=== PATIENT | female | born 1950 | race Caucasian/White ===

== ENCOUNTER → 2016-05-04 | Outpatient (CLI) | payer OTHER | LOC: MMPC 11:11 | DX: N95.2 Postmenopausal atrophic vaginitis (principal); F32.9 Major depressive disorder, single episode, unspecified; Z91.09 Other allergy status, other than to drugs and biological substances; E78.5 Hyperlipidemia, unspecified; R14.0 Abdominal distension (gaseous) | CPT/HCPCS: 99213; G0463 ==

== ENCOUNTER → 2016-05-11 | Outpatient (CLI) | payer OTHER | LOC: MMPC 11:11 | PROVIDERS: ATTEND Surgery | DX: Z12.11 Encounter for screening for malignant neoplasm of colon (principal) | CPT/HCPCS: 99212 ==

== ENCOUNTER 2016-06-12 08:18 | Day surgery (SDC) | payer OTHER ==
[~2016-06-12 08:18] MED LIST: fentaNYL Inj 100 MCG/2 ML VIAL ONE
[2016-06-12] MEDS ORDERED: LIDOCAINE W/ SODIUM BICARB 0.5 ML SYR ONE (08:20)
[2016-06-12] MEDS ORDERED: Lactated Ringers 1,000 ML PRIMARY IV ONE ×2 (08:20→09:24)
--- NOTE | 2016-06-12 10:02 | GEN.OPNOTE ---
Colonoscopy Procedure Note Surgery Date: 06/12/16 Preoperative Diagnosis: Colon cancer screening. Bleeding hemorrhoids Postoperative Diagnosis: Polyp at 100 cm. Internal hemorrhoids. Rectal prolapse Procedure: Colonoscopy with polypectomy. Infrared coagulation of internal hemorrhoid Surgeon: Lucio Ricci MD Anesthesia Provider: Josue Moreno CRNA Anesthesia Type: MAC Indications: Patient is here for screening colonoscopy. She's had rectal bleeding off and on for 3 months. She has a known diagnosis of internal hemorrhoids. Findings: Prep : Very good Cecum : Of his video colonoscopy scope inserted guided all way to cecum. Ileocecal valve seen along appendiceal orifice. Patient nor. Cecum Ascending : Ascending colon was within normal limits no polyps tumors or cancers Transverse : Transverse colon was within normal limits no polyps tumors or cancers Sigmoid : Descending colon had sessile polyps removed with polypectomy. They measured at 100 cm by be this is the descending colon. Alberto colon free from disease Rectum : Rectum had some internal hemorrhoids. Digital Rectal Exam : Patient did have some rectal prolapse. No rectal masses palpated A lubricated flexible colonoscope was inserted and passed to the blind end of the cecum. Additional Details: Anoscopy did show the patient is having some rectal prolapse. She does says maternal hemorrhoids that were cauterized with the infrared coagulation
--- NOTE | 2016-06-12 10:04 | MINORPROC ---
Outpatient History & Physical Chief Complaint: Patient is a screening colonoscopy Present Illness: Patient needs a screening colonoscopy. She has occasional hemorrhoidal bleed History: General: WNL, HEENT: WNL, Respiratory: WNL, Cardiovascular: WNL, Gastrointestinal: WNL Physical Exam: General: WNL, Head/Neck: WNL, Chest/Lungs: WNL, Heart: WNL Home Medications: Home Medications Medication Instructions Recorded Confirmed Type Ca Carbonate/Vitamin D3/Vit K 1 each PO BID 08/05/10 06/12/16 History [Viactiv Caplet] Omeprazole DR [PriLOSEC] 1 cap PO QD #90 08/05/10 06/12/16 History Polyeth Glycol 3350 Packet 17 gm PO DAILY PRN 08/05/10 06/12/16 History [Miralax Packet] [id number] [Beano] 2 tab PO ONCE PRN #90 tab 11/17/14 06/12/16 Clinic Trazodone HCl 1 mg PO BEDTIME 08/25/15 06/12/16 History Estrogens, Conj Vaginal Cream 1 gm VAGINAL DAILY #1 tube 02/07/16 06/12/16 Clinic [Premarin Vaginal Cream] Allergies/Adverse Reactions: Allergies Allergy/AdvReac Type Severity Reaction Status Date / Time No Known Allergies Allergy Verified 06/12/16 08:35 Impression / Plan: Colonoscopy with infrared coagulation of hemorrhoids My colonoscopy Transfusion: Transfusion Not Anticipated Anesthesia Plans: Sedation
[2016-06-12 13:35] VITALS: RESP 16
[2016-06-12 13:36] VITALS: TEMP 97.4
== END 2016-06-12 11:05 | disposition home or self-care (01) ==
LOC: SDSC 08:18
PROVIDERS: ATTEND Surgery
DX: Z12.11 Encounter for screening for malignant neoplasm of colon (principal); K64.8 Other hemorrhoids; K63.5 Polyp of colon; K62.3 Rectal prolapse
CPT/HCPCS: 45384 ×2; 46930 ×2; J2704; J3010; J7120